=== PATIENT | female | born 1990 | race African-American/Black ===

== ENCOUNTER 2017-01-26 11:14 | Emergency (ER) | payer MEDICARE ==
[~2017-01-26] VITALS: Ht 160 cm; Wt 62.8 kg
[2017-01-26] MEDS ORDERED: SODIUM CHLORIDE 0.9% 1,000 ML IV ONE (12:02)
[2017-01-26] MEDS ORDERED: IBUPROFEN 600MG TABLET PO ONE (12:15)
[2017-01-26 12:31] LABS: HEMATOCRIT. 36.6 % (36.0-48.0); HEMOGLOBIN. 11.4 g/dL (12.0-16.0); MEAN CORPUSCULAR HGB CONC 31.1 g/dL (31.0-37.0); MEAN CORPUSCULAR VOLUME 74.1 fL (81.0-99.0); MEAN PLATELET VOLUME 9.9 fl (7.4-10.4); PLATELET 149 x1000/uL (130-400); RED BLOOD CELL COUNT 4.94 mill/uL (4.2-5.4); RED CELL DISTRIBUTION WIDTH 14.9 % (11.6-14.6); WHITE BLOOD COUNT 15.2 x1000/uL (4.5-11.0)
[2017-01-26 12:37] LABS: DIFFERENTIAL COMMENT 1
[2017-01-26 12:47] LABS: ALANINE AMINOTRANSFERASE 14 IU/L (13-61); ALBUMIN 3.4 g/dL (3.4-5.0); ANION GAP 13; CALCIUM 9.2 mg/dL (8.5-10.1); CARBON DIOXIDE 27 mEq/L (21-32); CHLORIDE 101 mEq/L (98-107); INDEX HEMOLYSI 1 (1-3); INDEX ICTERIC 1 (1-4); INDEX LIPEMIC 1 (1-3); UREA NITROGEN BLOOD 11 mg/dL (7-21); eGFR > 60 mL/min (>60)
[2017-01-26 13:19] LABS: PLATELET ESTIMATE NORMAL
[2017-01-26] MEDS ORDERED: KETOROLAC 30MG/ML VIAL IV ONE (15:15)
[2017-01-26] MEDS ORDERED: IBUPROFEN 100MG/5ML UDC PO ONE (15:15)
[2017-01-26] MEDS ORDERED: DEXAMETHASONE 10MG/ML 1ML VIAL IM ONE (15:45)
[2017-01-26] MEDS ORDERED: PENICILLIN G BENZATHINE 1,200,000 UNITS/2ML SYR IM ONE (15:45)
[2017-01-26 18:22] VITALS: BP 121/83
== END 2017-01-26 18:23 | disposition home or self-care (01) ==
LOC: ER 13:03
DX: J02.0 Streptococcal pharyngitis (principal); E86.0 Dehydration; D72.825 Bandemia; R59.0 Localized enlarged lymph nodes; F17.210 Nicotine dependence, cigarettes, uncomplicated; Z88.5 Allergy status to narcotic agent; Z98.890 Other specified postprocedural states
CPT/HCPCS: 36415; 80053; 85025; 87430; 87804; 96361; 96372; 96374; 99285; J0561; J1100; J1885; J7030; Z7610

== ENCOUNTER 2017-12-07 16:20 | Emergency (ER) | payer MEDICAID, MEDICARE ==
[~2017-12-07] VITALS: Ht 160 cm; Wt 68.0 kg
[2017-12-07 16:39] VITALS: BP 143/99
== END 2017-12-07 16:45 | disposition left against medical advice (07) ==
LOC: ER 16:33
DX: Z53.21 Procedure and treatment not carried out due to patient leaving prior to being seen by health care provider (principal)